=== PATIENT | female | born 1980 | race Hispanic/Latino ===

== ENCOUNTER 2018-04-25 23:46 | Emergency (ER) | payer OTHER ==
[2018-04-26 00:42] VITALS: BP 125/90
[2018-04-26] MEDS ORDERED: NORCO 5/325 PO STA (02:25)
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
== END 2018-04-26 02:57 | disposition home or self-care (01) ==
LOC: ED 23:46
DX: M79.602 Pain in left arm (principal); M62.830 Muscle spasm of back; F17.200 Nicotine dependence, unspecified, uncomplicated; Z90.49 Acquired absence of other specified parts of digestive tract
CPT/HCPCS: 99282

== ENCOUNTER 2019-02-16 10:22 | Emergency (ER) | payer OTHER ==
[2019-02-16 10:45] VITALS: BP 155/103
--- NOTE | 2019-02-16 12:03 | XRay Report ---
RIGHT HAND, 3 VIEWS INDICATION: injury. COMPARISON: None. IMPRESSION: No acute osseous or soft tissue abnormality. No significant DJD. LEFT KNEE, 3 VIEWS INDICATION: injury. COMPARISON: None. IMPRESSION: No acute osseous or soft tissue abnormality. No significant DJD. Signer Name: Rodrigo Patel Jr, MD Signed: 02/16/2019 11:58 AM Workstation Name: [id number]
[2019-02-16] MEDS ORDERED: CYCLOBENZAPRINE 10 MG TAB PO ONE (13:26)
[2019-02-16] MEDS ORDERED: HYDROcodone/ACETAMINOPHEN 5-325 MG TAB PO ONE (13:26)
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
== END 2019-02-16 14:00 | disposition home or self-care (01) ==
LOC: ED 10:22
DX: S60.011A Contusion of right thumb without damage to nail, initial encounter (principal); F17.200 Nicotine dependence, unspecified, uncomplicated; Z90.49 Acquired absence of other specified parts of digestive tract; Z79.1 Long term (current) use of non-steroidal anti-inflammatories (NSAID); Z79.899 Other long term (current) drug therapy; V43.62XA Car passenger injured in collision with other type car in traffic accident, initial encounter; Y93.89 Activity, other specified; Y92.410 Unspecified street and highway as the place of occurrence of the external cause; Y99.8 Other external cause status